=== PATIENT | male | born 1975 | race Two or more races ===

== ENCOUNTER 2021-04-25 13:29 | Emergency (ER) | payer SELFPAY ==
[~2021-04-25] VITALS: Ht 175.3 cm; Wt 74.8 kg
[2021-04-25 13:44] VITALS: BP 141/72
[2021-04-25] MEDS ORDERED: IBUPROFEN 800 MG TAB PO ONE (16:00)
== END 2021-04-25 16:20 | disposition home or self-care (01) ==
LOC: ER 13:29
DX: N45.1 Epididymitis (principal); K40.90 Unilateral inguinal hernia, without obstruction or gangrene, not specified as recurrent; N43.3 Hydrocele, unspecified
CPT/HCPCS: 74176; 76870